=== PATIENT | female | born 1975 | race African-American/Black ===

== ENCOUNTER → 2017-10-22 | Outpatient (CLI) | payer MEDICAID ==
--- NOTE | 2017-10-22 17:07 | EKG ---
Date Performed: 10/22/2017 Time Performed: 09:06:58 PTAGE: 42 years EKG: Sinus rhythm with 1st degree A-V block. Poor R wave progression - probable normal variant Anterior T wave changes are nonspecific Abnormal ECG NO PREVIOUS TRACING DOCTOR: Juan José Gregory Interpretating Date/Time 10/22/2017 17:06:26
== END ==
LOC: HCAV 08:19
PROVIDERS: ATTEND Psychiatry & Neurology Child & Adolescent Psychiatry
DX: F25.0 Schizoaffective disorder, bipolar type (principal); R94.31 Abnormal electrocardiogram [ECG] [EKG]
CPT/HCPCS: 93005